=== PATIENT | female | born 1950 | race Caucasian/White ===

== ENCOUNTER 2017-08-06 10:55 | Day surgery (SDC) | payer BC, OTHER ==
[~2017-08-06 10:55] MED LIST: ACETAMINOPHEN WITH CODEINE 1 EACH TABLET PO PRN; NORMAL SALINE 1,000 ML IV PRN; ceFAZolin SODIUM 1 GM in DEXTROSE 5 % IN WATER 100 ML IV PRN
[2017-08-06] MEDS ORDERED: RINGER'S SOLUTION,LACTATED 1,000 ML IV ONE (12:00)
[2017-08-06 14:58] VITALS: BP 122/66
== END 2017-08-06 10:56 | disposition home or self-care (01) ==
LOC: AMB 10:55
PROVIDERS: ATTEND Urology
PROC: 0H9AXZZ Drainage of Inguinal Skin, External Approach (ICD-10-PCS; 2017-08-06)
PROC: BT1DZZZ Fluoroscopy of Right Kidney, Ureter and Bladder (ICD-10-PCS; principal; 2017-08-06 12:00)
DX: N20.1 Calculus of ureter (principal); L72.3 Sebaceous cyst; I10 Essential (primary) hypertension; E11.9 Type 2 diabetes mellitus without complications; E78.5 Hyperlipidemia, unspecified; K21.9 Gastro-esophageal reflux disease without esophagitis; K58.9 Irritable bowel syndrome, unspecified; F41.8 Other specified anxiety disorders; E66.9 Obesity, unspecified; Z68.28 Body mass index [BMI] 28.0-28.9, adult